=== PATIENT | female | born 1945 | race African-American/Black ===

== ENCOUNTER 2023-02-07 09:21 | Emergency (ER) | payer OTHER ==
[~2023-02-07] VITALS: Ht 167.6 cm; Wt 70.0 kg
[2023-02-07 09:23] VITALS: BP 0/0; PULSE 0; RESP 12; O2SAT 90
== END 2023-02-07 09:44 ==
LOC: ER 09:21
DX: I46.9 Cardiac arrest, cause unspecified (principal); I10 Essential (primary) hypertension
CPT/HCPCS: 99291